=== PATIENT | female | born 1995 | race Hispanic/Latino ===

== ENCOUNTER → 2016-08-28 | Outpatient (CLI) | payer OTHER ==
[~2016-08-28] MED LIST: KEFLEX500 MG PO; MIRALAX17 GM PO; MIRALAX255 GM PO; MOTRIN600 MG PO; NAPROSYN500 MG PO; NOHOMEMEDS; NORCO 5/3251 TABLET PO; ZANTAC150 MG PO; ZOFRAN ODT4 MG PO; ZOFRAN ODT8 MG PO
== END | disposition home or self-care (01) ==
LOC: RAD 08:56
DX: G43.909 Migraine, unspecified, not intractable, without status migrainosus (principal)
CPT/HCPCS: 70450

== ENCOUNTER 2016-08-31 13:30 | Emergency (ER) | payer OTHER ==
[~2016-08-31] VITALS: Ht 165.1 cm; Wt 47.1 kg
[~2016-08-31 13:30] MED LIST changes: -NAPROSYN500 MG PO; -ZOFRAN ODT4 MG PO
[2016-08-31 15:31] LABS: HEMATOCRIT 35.9 % (36.0-46.0); MCH 30.3 PG (29.0-34.0); MCHC 33.7 G/DL (30.0-36.0); MEAN PLAT.VOLUME 10.5 uM^3 (9.5-12.4); PLATELET COUNT 214 K/uL (156-360); RBC DIS.WIDTH-CV 12.5 % (11.8-14.6); RBC DIS.WIDTH-SD 41.1 % (39-53); RED BLOOD COUNT 3.99 M/uL (3.80-5.20); WHITE BLOOD COUNT 6.3 K/uL (4.1-10.2)
[2016-08-31 15:35] LABS: ADD MIUA? NO; BILIRUBIN NEGATIVE; BLOOD NEGATIVE; COLOR STRAW ((YELLOW)); GLUCOSE (STRIP) NEGATIVE; KETONES NEGATIVE; LEUKOCYTES NEGATIVE; NITRITE NEGATIVE; PROTEIN (STRIP) NEGATIVE; SPECIFIC GRAVITY 1.009 (1.000-1.030); UCUL ADDED? NO; UROBILINOGEN 0.2 MG/DL (0.2-1.0)
[2016-08-31 15:47] LABS: CHLORIDE 109 mEq/L (99-109); POTASSIUM 3.6 mEq/L (3.7-5.4); SODIUM 140 mEq/L (136-147)
[2016-08-31 15:49] LABS: GLUCOSE 83 mg/dL (70-99)
[2016-08-31 15:51] LABS: ANION GAP 9 MEQ/L (2-14); TOTAL BILIRUBIN 0.4 mg/dL (0.0-1.0)
[2016-08-31 15:53] LABS: ALKALINE PHOSPHATASE 47 IU/L (3-129); GFR ESTIMATE (CALCULATED) > 59 mL/min/
[2016-08-31 15:54] LABS: UREA NITROGEN (BUN) 14 mg/dL (9-23)
[2016-08-31 15:56] LABS: LIPASE 34 U/L (1.0-51.0)
[2016-08-31 16:02] LABS: QUANTITATIVE HCG < 4.0 MIU/ML
[2016-08-31] MEDS ORDERED: NAPROSYN500 MG PO (16:10)
[2016-08-31] MEDS ORDERED: ZOFRAN ODT4 MG PO (16:10)
[2016-08-31 17:31] VITALS: BP 136/91
== END 2016-08-31 17:31 | disposition home or self-care (01) ==
LOC: EME 13:30
DX: S09.8XXA Other specified injuries of head, initial encounter (principal); R11.2 Nausea with vomiting, unspecified; R10.2 Pelvic and perineal pain; M54.9 Dorsalgia, unspecified; V48.6XXA Car passenger injured in noncollision transport accident in traffic accident, initial encounter; R06.02 Shortness of breath
CPT/HCPCS: 80053; 81003; 83605; 83690; 84702; 85027; 99281; 99283; J1885

== ENCOUNTER → 2016-12-11 | Outpatient (CLI) | payer OTHER ==
[~2016-12-11] VITALS: Ht 165.1 cm; Wt 46.3 kg
[~2016-12-11] MED LIST changes: +NAPROSYN500 MG PO; +ZOFRAN ODT4 MG PO; +[UNRECOGNIZED DRUG - REMARK] PO
== END | disposition home or self-care (01) ==
LOC: AMB 09:53
PROC: 0DB68ZX Excision of Stomach, Via Natural or Artificial Opening Endoscopic, Diagnostic (ICD-10-PCS; principal; 2016-12-11)
DX: K31.89 Other diseases of stomach and duodenum (principal); R14.0 Abdominal distension (gaseous); R68.81 Early satiety; R10.13 Epigastric pain; D64.9 Anemia, unspecified; K59.09 Other constipation; R19.7 Diarrhea, unspecified; K21.9 Gastro-esophageal reflux disease without esophagitis; Z86.19 Personal history of other infectious and parasitic diseases; E28.2 Polycystic ovarian syndrome; M41.9 Scoliosis, unspecified; E55.9 Vitamin D deficiency, unspecified
CPT/HCPCS: 88305; 88342 TC; J2250

== ENCOUNTER 2017-01-06 10:23 | Emergency (ER) | payer OTHER ==
[~2017-01-06] VITALS: Ht 165.1 cm; Wt 51.1 kg
[2017-01-06] MEDS ORDERED: FLEXERIL10 MG PO (12:08)
[2017-01-06] MEDS ORDERED: MOTRIN600 MG PO (12:08)
[2017-01-06 12:26] VITALS: BP 109/66
== END 2017-01-06 11:27 | disposition home or self-care (01) ==
LOC: EME 10:23
DX: M62.838 Other muscle spasm (principal); M54.2 Cervicalgia; V43.52XA Car driver injured in collision with other type car in traffic accident, initial encounter; Y92.410 Unspecified street and highway as the place of occurrence of the external cause
CPT/HCPCS: 72040; 99281; 99283

== ENCOUNTER → 2017-01-28 | Outpatient (CLI) | payer OTHER ==
[~2017-01-28] MED LIST changes: +FLEXERIL10 MG PO
== END | disposition home or self-care (01) ==
LOC: NUC 01-15 07:00
DX: R10.13 Epigastric pain (principal)
CPT/HCPCS: 78264; A9541

== ENCOUNTER 2017-02-09 07:55 | Emergency (ER) | payer OTHER ==
[~2017-02-09] VITALS: Ht 165.1 cm; Wt 52.7 kg
[2017-02-09 08:21] LABS: ADD MIUA? YES; BILIRUBIN NEGATIVE; BLOOD SMALL; COLOR YELLOW ((YELLOW)); GLUCOSE (STRIP) NEGATIVE; KETONES NEGATIVE; LEUKOCYTES MODERATE; NITRITE NEGATIVE; PROTEIN (STRIP) NEGATIVE; UROBILINOGEN 0.2 MG/DL (0.2-1.0)
[2017-02-09 08:25] LABS: BACTERIA NONE SEEN /HPF; EPITHELIAL CELLS RARE /HPF; MUCUS TRACE /LPF; RED BLOOD CELLS 15-20 /HPF (0-5); UCUL ADDED? YES; WHITE BLOOD CELLS TNTC /HPF (0-5)
[2017-02-09 08:36] LABS: HEMATOCRIT 37.5 % (36.0-46.0); MCH 31.3 PG (29.0-34.0); MCHC 33.9 G/DL (30.0-36.0); MCV 92.4 FL (83-99); MEAN PLAT.VOLUME 10.5 uM^3 (9.5-12.4); PLATELET COUNT 209 K/uL (156-360); RBC DIS.WIDTH-CV 12.1 % (11.8-14.6); RED BLOOD COUNT 4.06 M/uL (3.80-5.20); WHITE BLOOD COUNT 4.3 K/uL (4.1-10.2)
[2017-02-09 09:58] LABS: CHLORIDE 109 mEq/L (99-109); SODIUM 140 mEq/L (136-147)
[2017-02-09 10:00] LABS: GLUCOSE 92 mg/dL (70-99)
[2017-02-09 10:01] LABS: ANION GAP 12 MEQ/L (2-14)
[2017-02-09 10:02] LABS: TOTAL BILIRUBIN 0.3 mg/dL (0.0-1.0)
[2017-02-09 10:03] LABS: ALKALINE PHOSPHATASE 50 IU/L (3-129)
[2017-02-09 10:04] LABS: GFR ESTIMATE (CALCULATED) > 59 mL/min/
[2017-02-09 10:05] LABS: UREA NITROGEN (BUN) 13 mg/dL (9-23)
[2017-02-09 10:12] LABS: QUANTITATIVE HCG < 4.0 MIU/ML
[2017-02-09] MEDS ORDERED: CIPRO500 MG PO (11:11)
[2017-02-09 11:30] VITALS: BP 97/71
== END 2017-02-09 11:35 | disposition home or self-care (01) ==
LOC: EME 07:55
DX: N39.0 Urinary tract infection, site not specified (principal); R10.2 Pelvic and perineal pain; Z87.42 Personal history of other diseases of the female genital tract
CPT/HCPCS: 74177; 76856; 80053; 81003; 84702; 85027; 87086; 99281; 99284; J7040

== ENCOUNTER 2017-02-18 10:29 | Emergency (ER) | payer OTHER ==
[~2017-02-18] VITALS: Ht 165.1 cm; Wt 52.8 kg
[~2017-02-18 10:29] MED LIST changes: +CIPRO500 MG PO
[2017-02-18 10:47] LABS: HEMATOCRIT 39.3 % (36.0-46.0); MCH 30.8 PG (29.0-34.0); MCHC 34.1 G/DL (30.0-36.0); MCV 90.3 FL (83-99); MEAN PLAT.VOLUME 10.8 uM^3 (9.5-12.4); PLATELET COUNT 220 K/uL (156-360); RBC DIS.WIDTH-CV 11.8 % (11.8-14.6); RBC DIS.WIDTH-SD 39.2 % (39-53); RED BLOOD COUNT 4.35 M/uL (3.80-5.20); WHITE BLOOD COUNT 5.5 K/uL (4.1-10.2)
[2017-02-18 10:55] LABS: CHLORIDE 105 mEq/L (99-109); POTASSIUM 3.7 mEq/L (3.7-5.4); SODIUM 139 mEq/L (136-147)
[2017-02-18 10:57] LABS: GLUCOSE 119 mg/dL (70-99)
[2017-02-18 10:59] LABS: ANION GAP 12 MEQ/L (2-14)
[2017-02-18 11:01] LABS: GFR ESTIMATE (CALCULATED) > 59 mL/min/
[2017-02-18 11:02] LABS: UREA NITROGEN (BUN) 19 mg/dL (9-23)
[2017-02-18 11:09] LABS: QUANTITATIVE HCG < 4.0 MIU/ML
[2017-02-18 11:49] LABS: ADD MIUA? NO; BILIRUBIN NEGATIVE; BLOOD NEGATIVE; COLOR YELLOW ((YELLOW)); GLUCOSE (STRIP) NEGATIVE; KETONES NEGATIVE; LEUKOCYTES NEGATIVE; NITRITE NEGATIVE; PROTEIN (STRIP) NEGATIVE; SPECIFIC GRAVITY 1.024 (1.000-1.030); UROBILINOGEN 0.2 MG/DL (0.2-1.0)
[2017-02-18] MEDS ORDERED: FLEXERIL10 MG PO (11:57)
[2017-02-18] MEDS ORDERED: IBUPROFEN800 MG PO (11:57)
[2017-02-18 12:14] VITALS: BP 125/86
[2017-02-18 14:13] LABS: UCUL ADDED? NO
== END 2017-02-18 12:14 | disposition home or self-care (01) ==
LOC: EME 10:29
DX: S29.012A Strain of muscle and tendon of back wall of thorax, initial encounter (principal); S76.011A Strain of muscle, fascia and tendon of right hip, initial encounter; X58.XXXA Exposure to other specified factors, initial encounter; F32.9 Major depressive disorder, single episode, unspecified
CPT/HCPCS: 80048; 81003; 84702; 85027; 99281; 99284

== ENCOUNTER 2017-06-12 12:47 | Emergency (ER) | payer OTHER ==
[~2017-06-12] VITALS: Ht 165.1 cm; Wt 56.8 kg
[~2017-06-12 12:47] MED LIST changes: +IBUPROFEN800 MG PO
[2017-06-12 13:45] LABS: APPEARANCE SL.HAZY ((CLEAR)); BILIRUBIN NEGATIVE; BLOOD NEGATIVE; COLOR YELLOW ((YELLOW)); GLUCOSE (STRIP) NEGATIVE; KETONES NEGATIVE; LEUKOCYTES NEGATIVE; NITRITE NEGATIVE; PROTEIN (STRIP) NEGATIVE; UROBILINOGEN 0.2 MG/DL (0.2-1.0)
[2017-06-12 13:59] LABS: BACTERIA RARE /HPF; EPITHELIAL CELLS RARE /HPF; MUCUS 3+ /LPF; RED BLOOD CELLS 0-5 /HPF (0-5); UCUL ADDED? NO; WHITE BLOOD CELLS 0-5 /HPF (0-5)
[2017-06-12 14:25] LABS: HEMATOCRIT 37.4 % (36.0-46.0); HEMOGLOBIN 12.9 G/DL (11.9-15.5); MCH 30.7 PG (29.0-34.0); MCHC 34.5 G/DL (30.0-36.0); PLATELET COUNT 264 K/uL (156-360); RBC DIS.WIDTH-CV 12.2 % (11.8-14.6); RBC DIS.WIDTH-SD 39.8 % (39-53); WHITE BLOOD COUNT 5.5 K/uL (4.1-10.2)
[2017-06-12 14:35] LABS: ALBUMIN 4.4 g/dL (3.2-4.8); CHLORIDE 109 mEq/L (99-109); POTASSIUM 3.9 mEq/L (3.7-5.4); SODIUM 140 mEq/L (136-147)
[2017-06-12 14:37] LABS: TOTAL PROTEIN 7.6 g/dL (6.4-8.3)
[2017-06-12 14:39] LABS: TOTAL BILIRUBIN 0.3 mg/dL (0.0-1.0)
[2017-06-12 14:40] LABS: GLUCOSE 87 mg/dL (70-99)
[2017-06-12 14:41] LABS: ALKALINE PHOSPHATASE 72 IU/L (3-129); CREATININE 0.7 mg/dL (0.6-1.3); GFR ESTIMATE (CALCULATED) > 59 mL/min/
[2017-06-12 14:42] LABS: UREA NITROGEN (BUN) 13 mg/dL (9-23)
[2017-06-12 14:43] LABS: AST (GOT) 22 IU/L (2-34)
[2017-06-12 14:44] LABS: ALT (GPT) 41 IU/L (3-49)
[2017-06-12 14:49] LABS: QUANTITATIVE HCG < 4.0 MIU/ML
[2017-06-12] MEDS ORDERED: METFORMIN HCL500 M4 PO (15:29)
[2017-06-12] MEDS ORDERED: PANTOPRAZOLE SO20 MG PO (15:30)
[2017-06-12] MEDS ORDERED: FLEXERIL10 MG PO (16:03)
[2017-06-12 16:11] VITALS: BP 109/61
== END 2017-06-12 16:12 | disposition home or self-care (01) ==
LOC: EME 12:47
DX: R10.11 Right upper quadrant pain (principal); M62.838 Other muscle spasm; F32.9 Major depressive disorder, single episode, unspecified; Z79.3 Long term (current) use of hormonal contraceptives
CPT/HCPCS: 76705; 80053; 81003; 84702; 85027

== ENCOUNTER → 2017-08-12 | Outpatient (CLI) | payer OTHER ==
[~2017-08-12] MED LIST changes: +METFORMIN HCL500 M4 PO; +PANTOPRAZOLE SO20 MG PO
== END | disposition home or self-care (01) ==
LOC: NUC 08-11 07:00
DX: R10.13 Epigastric pain (principal)
CPT/HCPCS: 78227; A9537; J2805